=== PATIENT | male | born 1960 | race African-American/Black ===

== ENCOUNTER 2016-11-17 20:25 | Emergency (ER) | payer OTHER ==
[~2016-11-17] VITALS: Ht 170.2 cm; Wt 81.0 kg
[2016-11-17] MEDS ORDERED: HYDROCODONE/ACETAMINOPHEN 5/325MG TABLET PO ONE (23:00)
[2016-11-18 00:43] VITALS: BP 135/75
== END 2016-11-18 01:49 | disposition home or self-care (01) ==
LOC: ER 20:25
DX: M54.5 Low back pain (principal); M25.551 Pain in right hip; V89.2XXA Person injured in unspecified motor-vehicle accident, traffic, initial encounter; Y93.89 Activity, other specified; Y92.89 Other specified places as the place of occurrence of the external cause; Y99.8 Other external cause status
CPT/HCPCS: 70450; 71010; 72070; 72100; 72125; 72170; 93005; 99284